=== PATIENT | female | born 1935 | race Caucasian/White ===

== ENCOUNTER 2019-07-12 10:20 | Emergency (ER) | payer MEDICARE ==
[~2019-07-12] VITALS: Ht 152.4 cm; Wt 50.4 kg
[~2019-07-12 10:20] MED LIST: CEPHALEXIN 500500 M3 PO; GLUCOSAMINE-MS1 EAC3 PO; HI-CAL500 MG PO; HYDROCODONE-AP1 EAC6 PO; KEFLEX500 MG PO; MELOXICAM; MULTI VITAMIN1 EACH PO; SYNTHROID; SYNTHROID100 MCG PO; TAMIFLU75 MG PO; ULTRAM 50MG TAB50 MG PO; VITAMIN D1000 UNI2 PO; WELLBUTRIN; WELLBUTRIN 100100 MG NG; ZOFRAN ODT4 MG PO
[2019-07-12 11:27] VITALS: BP 125/85
== END 2019-07-12 11:28 | disposition home or self-care (01) ==
LOC: M.ERS 10:20
DX: S60.222A Contusion of left hand, initial encounter (principal); F32.9 Major depressive disorder, single episode, unspecified; E03.9 Hypothyroidism, unspecified; Z90.49 Acquired absence of other specified parts of digestive tract; Z98.890 Other specified postprocedural states; W01.0XXA Fall on same level from slipping, tripping and stumbling without subsequent striking against object, initial encounter; Y93.01 Activity, walking, marching and hiking; Y92.89 Other specified places as the place of occurrence of the external cause; Y99.8 Other external cause status